=== PATIENT | male | born 1950 | race Two or more races ===

== ENCOUNTER 2018-09-05 11:40 | Emergency (ER) | payer MEDICARE, OTHER ==
[2018-09-05 12:25] VITALS: TEMP 97.6; BMI 34.9
--- NOTE | 2018-09-05 12:45 | PDOC ---
History of Present Illness - General Chief Complaint: Revisit, Lab Variance Stated Complaint: DIALYSIS PROBLEM Time Seen by Provider: 09/05/18 12:39 - History of Present Illness Initial Comments: 09/05/18 12:55 The patient is a 68 year old male with a history of HTN who presents for evaluation due to abnormal labs. The patient reports that he had blood work performed over a week ago by one of his physicians and 1 week ago was told that his blood work was abnormal and he should go to the ED. He states that he has not had time to go to the ED until today. He does not know what was abnormal in his blood work and is asymptomatic. He otherwise denies fevers, chills, SOB , chest pain, nausea, vomiting, abdominal pain, or changes with urination or bowel movements. Past History - Past Medical History Allergies/Adverse Reactions: Allergies Allergy/AdvReac Type Severity Reaction Status Date / Time No Known Allergies Allergy Verified 09/05/18 12:16 Home Medications: Ambulatory Orders Acetaminophen [Tylenol] 500 mg PO QID PRN 11/15/15 Aspirin [[place] Aspirin] 81 mg PO DAILY 11/15/15 Finasteride [Propecia] 5 mg PO DAILY 11/15/15 Lisinopril [Prinivil -] 20 mg PO DAILY 11/15/15 Multivitamin [Poly-Vitamin] 1 each PO DAILY 11/15/15 Nifedipine [Procardia Xl] 30 mg PO DAILY 11/15/15 Tamsulosin HCl [Flomax] 0.4 mg PO DAILY 11/15/15 COPD: No HTN: Yes - Suicide/Smoking/Psychosocial Hx Smoking History: Never smoked Hx Alcohol Use: No Drug/Substance Use Hx: No Substance Use Type: None Review of Systems - Review of Systems Comments:: 09/05/18 13:09 Constitutional: No fevers, chills, fatigue, malaise HEENT: No Rhinorrhea, nasal congestion, visual changes Cardiovascular: No chest pain, syncope, palpitations, lightheadedness Respiratory: No Cough, SOB, Hemoptysis, Gastrointestinal: No Abdominal pain, Nausea, Vomiting, Constipation, Diarrhea, Melena Genitourinary: No Dysuria, Frequency, Urgency, Hesitancy, Hematuria, Flank pain Musculoskeletal: No Myalgia, arthralgia Skin: No rashes, itching, bruising, pallor Neurologic: No Headache, Dizziness, Numbness, Weakness, or Tingling Psychiatric: No Hallucinations. No SI or HI *Physical Exam - Vital Signs Last Vital Signs Temp Pulse Resp BP Pulse Ox 97.6 F 87 16 141/80 99 09/05/18 12:16 09/05/18 12:16 09/05/18 12:16 09/05/18 12:16 09/05/18 12:16 - Physical Exam Comments: 09/05/18 13:09 General Appearance: Nourished. No Apparent Distress HEENT: No Pharyngeal Erythema, Tonsillar Exudate, Tonsillar Erythema Neck: No Cervical Lymphadenopathy Respiratory/Chest: Lungs Clear, Normal Breath Sounds. No Crackles, Rales, Rhonchi, Wheezing Cardiovascular: Regular Rhythm, Regular Rate. No Murmur, Gallops, Rubs Gastrointestinal/Abdominal: Normal Bowel Sounds, Soft. No Guarding, Rebound, Tenderness Musculoskeletal: No CVA Tenderness Extremity: Normal Capillary Refill Integumentary: Normal Color, Dry, Warm Neurologic: Fully Oriented, Alert, Normal Mood/Affect, Normal Response, ED Treatment Course - LABORATORY CBC & Chemistry Diagram: 09/05/18 13:15 09/05/18 13:15 Medical Decision Making - Medical Decision Making 09/05/18 13:10 The patient is a 68 year old male with a history of HTN who presents for evaluation due to abnormal labs. The patient appears clinically well on exam. Given the patient's history and physical exam, we will obtain a cbc, cmp, ekg to evaluate further. We will continue to monitor and reassess while here in the ED. 09/05/18 23:39 CBC are unremarkable. CMP demonstrates an elevated creatinine to 1.9 which is the patient's baseline. The patient continues to remain asymptomatic here in the ED. We are comfortable discharging the patient home with primary care provider follow up. We discussed the results, plan, and return precautions with the patient who voiced understanding and is agreeable with the plan. *DC/Admit/Observation/Transfer Diagnosis at time of Disposition: CKD (chronic kidney disease) Qualifiers: Chronic kidney disease stage: unspecified stage Qualified Code(s): N18.9 - Chronic kidney disease, unspecified - Discharge Dispostion Disposition: HOME Condition at time of disposition: Stable Decision to Admit order: No - Referrals - Patient Instructions Printed Discharge Instructions: Chronic Renal Failure Additional Instructions: Please return to the ER if you experience concerning or worsening symptoms including worsening difficulty breathing, weakness, or chest pain. Your lab results show that you have chronic kidney disease here in the ER. Please call to schedule a follow up appointment with your primary care provider within 2-3 days to discuss your ER visit and further management of your symptoms. Por favor, regrese a la antonia de emergencias si experimenta problemas o empeoramiento de los sntomas incluyendo empeoramiento de la dificultad respiratoria, debilidad o dolor en el pecho. Los resultados de tu laboratorio muestran que tienes garett enfermedad renal crnica aqu en [facility]. Por favor llame para programar garett belkis de seguimiento con garnica proveedor de cuidado primario dentro de los 2-3 philip para discutir garnica visita de [facility] y la administracin de jonathon sntomas. Print Language: KAZAKH - Post Discharge Activity
[2018-09-05 13:29] LABS: BASO % 1.1 % (0-2.0); EOS % 2.9 % (0-4.5); HEMATOCRIT 35.9 % (35.4-49); HEMOGLOBIN 11.8 GM/dL (11.7-16.9); LYMPH % 27.7 % (8-40); MCH 30.1 pg (25.7-33.7); MEAN CELL VOLUME 91.2 fl (80-96); MEAN PLT VOLUME 10.2 fl (7.5-11.1); MONO % 7.4 % (3.8-10.2); NEUT % 60.9 % (42.8-82.8); PLATELET COUNT 193 K/MM3 (134-434); RBC 3.94 M/mm3 (4.00-5.60); RDW 13.5 % (11.9-15.9); WHITE BLOOD COUNT 7.3 K/mm3 (4.0-10.0)
[2018-09-05 14:02] LABS: ALBUMIN 3.7 g/dl (3.4-5.0); ALK PHOS 101 U/L (45-117); ANION GAP 8 MMOL/L (8-16); BILIRUBIN,TOTAL 0.6 mg/dL (0.2-1); BLOOD UREA NITROGEN 32 mg/dL (7-18); CALCIUM 9.3 mg/dL (8.5-10.1); CHLORIDE 106 mmol/L (98-107); CO2 25 mmol/L (21-32); CREATININE 1.9 mg/dL (0.55-1.3); GLUCOSE,RANDOM 96 mg/dL (74-106); POTASSIUM 3.7 mmol/L (3.5-5.1); SGOT/AST 24 U/L (15-37); SGPT/ALT 24 U/L (13-61); SODIUM 139 mmol/L (136-145); TOT PROT 7.6 g/dl (6.4-8.2)
--- NOTE | 2018-09-05 14:05 | PDOC ---
Attending Attestation - Resident Resident Name: Bret Wallsel - ED Attending Attestation I have performed the following: I have examined & evaluated the patient, The case was reviewed & discussed with the resident, I agree w/resident's findings & plan - HPI HPI: 09/05/18 14:04 Brian is a 68-year-old male, with a past medical history of HTN, who presents to the ED with abnormal lab findings. The patient states that he had blood drawn last week at his doctors office at [facility]. He was called and told to report to the ED but he is unsure why. He reports that he was unable to go to the ER until today. On exam, the patient is asymptomatic. - Physicial Exam PE: 09/05/18 14:04 NAD, well appearing, PERRL, EOMI, MMM, nl conjunctiva, anicteric; neck supple. lungs clear, RRR, abdomen soft nontender. JEAN x4, no focal neuro deficits. No peripheral edema. normal color for ethnicity, WWP. - Medical Decision Making 09/05/18 14:04 68 YOM with no symptoms, here with abnormal labs? Vital signs reviewed, wnl. Prior notes reviewed, including admissions, discharges and consultations. laboratory results and imaging reviewed, basic labs and lytes wnl, notable for baseline Cr ~1.9, unchanged. no other e/o organ damage Cardiac panel_neg trop EKG normal sinus rhythm, no interval abnormalities, narrow QRS, ST and T wave segments and morphology normal. Nonspecific T wave abnormalities ED course: no acute events, asymptomatic. Dispo: I discussed the physical exam findings, ancillary test results and final diagnoses with the patient. I answered all of the patient's questions. The patient was satisfied with the care received and felt comfortable with the discharge plan and treatment plan. The patient will return to the Emergency Department with any new, persistent or worsening symptoms. 09/05/18 14:58 09/05/18 16:17 Heart Score/ECG Review - ECG Impressions Normal ECG: Yes Comment:: 09/05/18 14:57 EKG normal sinus rhythm, no interval abnormalities, narrow QRS, ST and T wave segments and morphology normal. Nonspecific T wave abnormalities
--- NOTE | 2018-09-05 15:19 | EKG ---
Test Reason : Blood Pressure : / mmHG Vent. Rate : 073 BPM Atrial Rate : 073 BPM P-R Int : 196 ms QRS Dur : 098 ms QT Int : 428 ms P-R-T Axes : 053 -22 026 degrees QTc Int : 471 ms POOR DATA QUALITY, INTERPRETATION MAY BE ADVERSELY AFFECTED NORMAL SINUS RHYTHM MINIMAL VOLTAGE CRITERIA FOR LVH, MAY BE NORMAL VARIANT BORDERLINE ECG NO PREVIOUS ECGS AVAILABLE Confirmed by Gage Mi MD ([id number]) on 09/05/2018 3:19:41 PM Referred By: Confirmed By:Gage Mi MD
[2018-09-05 16:52] VITALS: BP 133/80; PULSE 84
== END 2018-09-05 16:53 | disposition home or self-care (01) ==
LOC: JER 11:40
DX: I12.9 Hypertensive chronic kidney disease with stage 1 through stage 4 chronic kidney disease, or unspecified chronic kidney disease (principal)
CPT/HCPCS: 36415; 80053; 85025; 93005; 93010; 99283-25

== ENCOUNTER 2021-11-09 13:38 | Inpatient (IN) | payer MEDICARE, OTHER ==
[2021-11-09] MEDS ORDERED: ALBUTEROL SO4 2.5/IPRATROPIUM 0.5 INH SOL 3 ML VIAL.NEB. NEB ONE ×3 (13:41→17:34)
[2021-11-09 14:31] LABS: VENOUS BASE EXCESS 0.8 mmol/L (-2-2); VENOUS O2 SATURATION 63.6 % (70-80); VENOUS PH 7.364 (7.310-7.410)
[2021-11-09 14:34] LABS: BASO % 0.8 % (0-2.0); EOS % 3.1 % (0-4.5); HEMATOCRIT 35.1 % (35.4-49); HEMOGLOBIN 11.6 GM/dL (11.7-16.9); LYMPH % 12.8 % (8-40); MCH 29.6 pg (25.7-33.7); MEAN CELL VOLUME 89.6 fl (80-96); MEAN PLT VOLUME 10.1 fl (7.5-11.1); MONO % 9.2 % (3.8-10.2); NEUT % 74.1 % (42.8-82.8); PLATELET COUNT 134 10^3/uL (134-434); RBC 3.92 M/mm3 (4.00-5.60); RDW 14.7 % (11.9-15.9); WHITE BLOOD COUNT 5.7 K/mm3 (4.0-10.0)
[2021-11-09] MEDS ORDERED: DEXAMETHASONE SOD PHOSPHATE 10 MG/1 ML VIAL IVPUSH ONE (14:40)
[2021-11-09] MEDS ORDERED: DEXAMETHASONE SOD PHOSPHATE 10 MG/1 ML VIAL ONE (14:44)
[2021-11-09 15:01] LABS: CALCIUM 8.6 mg/dL (8.5-10.1)
[2021-11-09 15:02] LABS: MAGNESIUM 2.9 mg/dL (1.8-2.4)
[2021-11-09 15:03] LABS: ALBUMIN 3.3 g/dl (3.4-5.0)
[2021-11-09 15:05] LABS: CREATININE 2.2 mg/dL (0.55-1.3)
[2021-11-09 15:07] LABS: BILIRUBIN,TOTAL 0.5 mg/dL (0.2-1); TOT PROT 6.8 g/dl (6.4-8.2)
[2021-11-09 15:10] LABS: N-TERMINAL BNP 32176.8 pg/ml (5-125)
[2021-11-09] MEDS ORDERED: FUROSEMIDE 40 MG/4 ML INJECTABLE VIAL IVPUSH ONE ×2 (15:25→18:52)
[2021-11-09] MEDS ORDERED: FUROSEMIDE 40 MG/4 ML INJECTABLE VIAL ONE ×2 (15:29→19:34)
[2021-11-09] MEDS ORDERED: ALBUTEROL SO4 0.083% IH SOL 2.5 MG/3 ML VIAL.NEB. NEB ONE (17:30)
[2021-11-09] MEDS ORDERED: MAGNESIUM SULF 50% (8.12 MEQ/2 ML-1 GM VIAL) IVPB ONE (17:33)
[2021-11-09] MEDS ORDERED: ALBUTEROL SO4 HFA INHALER IH PRN (18:21)
[2021-11-09] MEDS ORDERED: MAGNESIUM 1GM/D5W - 1 GM/100 ML IVPB IVPB ONE (18:25)
[2021-11-09] MEDS ORDERED: ASPIRIN COATED 81 MG TABLET.EC ONE (18:26)
[2021-11-09] MEDS: ASPIRIN COATED 81 MG TABLET.EC PO SCH (18:37)
[2021-11-09 19:53] LABS: EPI CELLS 4 /uL (0-25.1); HYALINE CASTS 2 /uL (0-3.1); PH,URINE 6.5 (5.0-8.0); URINE APPEARANCE CLEAR; URINE BACTERIA 11 /uL (0-1359); URINE BILIRUBIN NEGATIVE (NEGATIVE); URINE COLOR YELLOW; URINE GLUCOSE (UA) NEGATIVE (NEGATIVE); URINE KETONE NEGATIVE (NEGATIVE); URINE LEUK ESTERASE TRACE (NEGATIVE); URINE NITRITE NEGATIVE (NEGATIVE); URINE PROTEIN 2+ (NEGATIVE); URINE RBC 29 /uL (0-23.9); URINE UROBILINOGEN 0.2 mg/dL (0.2-1.0); URINE WBC 11 /uL (0-25.8)
[2021-11-09] MEDS ORDERED: HEPARIN NA (PORCINE) 5,000 UNITS/ML 1ML VIAL ONE (23:37)
[2021-11-09] MEDS: HEPARIN NA (PORCINE) 5,000 UNITS/ML 1ML VIAL SQ SCH (23:48)
[2021-11-10] MEDS ORDERED: HEPARIN NA (PORCINE) 5,000 UNITS/ML 1ML VIAL ONE ×3 (06:22→22:18)
[2021-11-10] MEDS: HEPARIN NA (PORCINE) 5,000 UNITS/ML 1ML VIAL SQ SCH ×3 (06:35→22:18)
[2021-11-10] MEDS ORDERED: ASPIRIN COATED 81 MG TABLET.EC ONE (08:21)
[2021-11-10] MEDS ORDERED: TAMSULOSIN HCL 0.4 MG CAP ONE (08:21)
[2021-11-10] MEDS ORDERED: FUROSEMIDE 40 MG/4 ML INJECTABLE VIAL ONE ×2 (08:21→14:48)
[2021-11-10 09:03] LABS: CALCIUM 9.2 mg/dL (8.5-10.1); CREATININE 2.4 mg/dL (0.55-1.3)
[2021-11-10 09:04] LABS: ALBUMIN 3.4 g/dl (3.4-5.0)
[2021-11-10 09:05] LABS: BLOOD UREA NITROGEN 52.2 mg/dL (7-18); TOT PROT 7.2 g/dl (6.4-8.2)
[2021-11-10 09:08] LABS: PHOSPHOROUS 5.5 mg/dL (2.5-4.9)
[2021-11-10 09:10] LABS: BILIRUBIN,TOTAL 0.7 mg/dL (0.2-1)
[2021-11-10] MEDS: TAMSULOSIN HCL 0.4 MG CAP PO SCH (09:15)
[2021-11-10] MEDS: ASPIRIN COATED 81 MG TABLET.EC PO SCH (09:15)
[2021-11-10] MEDS ORDERED: FUROSEMIDE 40 MG/4 ML INJECTABLE VIAL IVPUSH SCH (10:00)
[2021-11-10] MEDS ORDERED: SODIUM CHLORIDE 500 ML IV STA (10:02)
[2021-11-10] MEDS ORDERED: predniSONE 20 MG TABLET (UD) PO SCH (10:15)
[2021-11-10] MEDS ORDERED: predniSONE 20 MG TABLET (UD) ONE (10:33)
[2021-11-10 11:06] LABS: BASO % 0.2 % (0-2.0); HEMATOCRIT 37.8 % (35.4-49); HEMOGLOBIN 11.7 GM/dL (11.7-16.9); LYMPH % 5.8 % (8-40); MCH 28.5 pg (25.7-33.7); MEAN CELL VOLUME 91.8 fl (80-96); MONO % 6.9 % (3.8-10.2); NEUT % 87.1 % (42.8-82.8); PLATELET COUNT 136 10^3/uL (134-434); RBC 4.12 M/mm3 (4.00-5.60); RDW 14.9 % (11.9-15.9); WHITE BLOOD COUNT 4.9 K/mm3 (4.0-10.0)
[2021-11-10] MEDS: FUROSEMIDE 40 MG/4 ML INJECTABLE VIAL IVPUSH SCH (14:30)
[2021-11-10] MEDS: ISOSORBIDE DINITRATE 10 MG TABLET PO SCH (18:53)
[2021-11-10] MEDS: hydrALAZINE HCL 10 MG TABLET PO SCH (18:53)
[2021-11-10] MEDS ORDERED: CARVEDILOL 3.125 MG TABLET (FP) PO SCH (23:45)
[2021-11-11 00:38] VITALS: BMI 37.3
[2021-11-11] MEDS: hydrALAZINE HCL 10 MG TABLET PO SCH ×3 (06:39→21:57)
[2021-11-11] MEDS: FUROSEMIDE 40 MG/4 ML INJECTABLE VIAL IVPUSH SCH ×2 (06:40→14:09)
[2021-11-11] MEDS: HEPARIN NA (PORCINE) 5,000 UNITS/ML 1ML VIAL SQ SCH ×3 (06:40→21:57)
[2021-11-11 07:16] LABS: BASO % 0.1 % (0-2.0); EOS % 0.1 % (0-4.5); HEMATOCRIT 35.4 % (35.4-49); HEMOGLOBIN 11.2 GM/dL (11.7-16.9); LYMPH % 7.4 % (8-40); MCH 28.8 pg (25.7-33.7); MCHC 31.6 g/dl (32.0-35.9); MEAN CELL VOLUME 91.3 fl (80-96); MEAN PLT VOLUME 11.2 fl (7.5-11.1); MONO % 9.7 % (3.8-10.2); NEUT % 82.7 % (42.8-82.8); PLATELET COUNT 134 10^3/uL (134-434); RBC 3.88 M/mm3 (4.00-5.60); RDW 14.6 % (11.9-15.9); WHITE BLOOD COUNT 6.8 K/mm3 (4.0-10.0)
[2021-11-11 07:29] LABS: CALCIUM 8.4 mg/dL (8.5-10.1)
[2021-11-11 07:30] LABS: ALBUMIN 3.4 g/dl (3.4-5.0); BLOOD UREA NITROGEN 66.8 mg/dL (7-18)
[2021-11-11 07:33] LABS: CREATININE 2.8 mg/dL (0.55-1.3); PHOSPHOROUS 5.9 mg/dL (2.5-4.9)
[2021-11-11 07:34] LABS: BILIRUBIN,TOTAL 0.8 mg/dL (0.2-1)
[2021-11-11] MEDS: TAMSULOSIN HCL 0.4 MG CAP PO SCH (09:16)
[2021-11-11] MEDS: ISOSORBIDE DINITRATE 10 MG TABLET PO SCH ×3 (09:16→17:37)
[2021-11-11] MEDS: FINASTERIDE 5 MG TABLET (FP) PO SCH (09:16)
[2021-11-11] MEDS: ASPIRIN COATED 81 MG TABLET.EC PO SCH (09:16)
[2021-11-11] MEDS ORDERED: LEVALBUTEROL HCL 0.31 MG/3 ML VIAL.NEB IH PRN (10:53)
[2021-11-11] MEDS: FLUTICASONE/SALMETEROL 100 MCG/50 MCG DISKUS IH SCH ×2 (12:27→22:01)
[2021-11-12] MEDS: hydrALAZINE HCL 10 MG TABLET PO SCH ×3 (05:54→21:11)
[2021-11-12] MEDS: HEPARIN NA (PORCINE) 5,000 UNITS/ML 1ML VIAL SQ SCH ×3 (05:54→21:11)
[2021-11-12] MEDS: FUROSEMIDE 40 MG/4 ML INJECTABLE VIAL IVPUSH SCH ×2 (05:54→13:54)
[2021-11-12 07:41] LABS: BASO % 0.6 % (0-2.0); EOS % 5.2 % (0-4.5); HEMATOCRIT 33.7 % (35.4-49); LYMPH % 14.4 % (8-40); MCH 29.4 pg (25.7-33.7); MCHC 32.7 g/dl (32.0-35.9); MEAN CELL VOLUME 89.8 fl (80-96); MEAN PLT VOLUME 10.8 fl (7.5-11.1); NEUT % 70.8 % (42.8-82.8); PLATELET COUNT 120 10^3/uL (134-434); RBC 3.75 M/mm3 (4.00-5.60); RDW 14.9 % (11.9-15.9); WHITE BLOOD COUNT 5.9 K/mm3 (4.0-10.0)
[2021-11-12] MEDS: ALBUTEROL SO4 HFA INHALER IH PRN (09:58)
[2021-11-12] MEDS: ASPIRIN COATED 81 MG TABLET.EC PO SCH (09:59)
[2021-11-12] MEDS: TAMSULOSIN HCL 0.4 MG CAP PO SCH (09:59)
[2021-11-12] MEDS: ISOSORBIDE DINITRATE 10 MG TABLET PO SCH ×3 (09:59→17:28)
[2021-11-12] MEDS: FINASTERIDE 5 MG TABLET (FP) PO SCH (09:59)
[2021-11-12] MEDS: FLUTICASONE/SALMETEROL 100 MCG/50 MCG DISKUS IH SCH ×2 (10:00→21:11)
[2021-11-12] MEDS ORDERED: METOPROLOL TARTRATE 5 MG/5 ML VIAL IVPUSH ONE (11:41)
[2021-11-13] MEDS: hydrALAZINE HCL 10 MG TABLET PO SCH (05:13)
[2021-11-13] MEDS: HEPARIN NA (PORCINE) 5,000 UNITS/ML 1ML VIAL SQ SCH ×3 (05:13→21:08)
[2021-11-13] MEDS: FUROSEMIDE 40 MG/4 ML INJECTABLE VIAL IVPUSH SCH ×2 (05:13→13:13)
[2021-11-13 06:41] LABS: BASO % 0.9 % (0-2.0); EOS % 4.8 % (0-4.5); HEMATOCRIT 34.7 % (35.4-49); MCH 28.7 pg (25.7-33.7); MCHC 31.6 g/dl (32.0-35.9); MEAN CELL VOLUME 90.9 fl (80-96); MEAN PLT VOLUME 10.4 fl (7.5-11.1); MONO % 8.6 % (3.8-10.2); NEUT % 73.7 % (42.8-82.8); PLATELET COUNT 128 10^3/uL (134-434); RBC 3.82 M/mm3 (4.00-5.60); RDW 14.6 % (11.9-15.9); WHITE BLOOD COUNT 5.5 K/mm3 (4.0-10.0)
[2021-11-13 07:07] LABS: ALBUMIN 3.1 g/dl (3.4-5.0); BLOOD UREA NITROGEN 72.6 mg/dL (7-18); CALCIUM 8.3 mg/dL (8.5-10.1); MAGNESIUM 2.5 mg/dL (1.8-2.4)
[2021-11-13 07:10] LABS: CREATININE 2.5 mg/dL (0.55-1.3); PHOSPHOROUS 5.2 mg/dL (2.5-4.9)
[2021-11-13 07:11] LABS: BILIRUBIN,TOTAL 0.6 mg/dL (0.2-1); TOT PROT 6.4 g/dl (6.4-8.2)
[2021-11-13] MEDS: ASPIRIN COATED 81 MG TABLET.EC PO SCH (09:14)
[2021-11-13] MEDS: ISOSORBIDE DINITRATE 10 MG TABLET PO SCH ×3 (09:14→17:31)
[2021-11-13] MEDS: TAMSULOSIN HCL 0.4 MG CAP PO SCH (09:14)
[2021-11-13] MEDS: FINASTERIDE 5 MG TABLET (FP) PO SCH (09:14)
[2021-11-13] MEDS: metoPROLOL SUCCINATE 25 MG TAB.SR.24H (FP) PO SCH (09:14)
[2021-11-13] MEDS: FLUTICASONE/SALMETEROL 100 MCG/50 MCG DISKUS IH SCH ×2 (09:16→21:08)
[2021-11-13] MEDS: ALBUTEROL SO4 HFA INHALER IH PRN (09:17)
[2021-11-13] MEDS ORDERED: POTASSIUM CHLORIDE TABS 20 MEQ TABLET.ER (FP) PO ONE (12:15)
[2021-11-13] MEDS: hydrALAZINE HCL 25 MG TABLET (FP) PO SCH ×2 (13:13→21:08)
[2021-11-13 19:19] LABS: ALBUMIN 3.2 g/dl (3.4-5.0); BILIRUBIN,TOTAL 0.6 mg/dL (0.2-1); CALCIUM 8.7 mg/dL (8.5-10.1); CREATININE 2.8 mg/dL (0.55-1.3); PHOSPHOROUS 5.5 mg/dL (2.5-4.9); TOT PROT 6.4 g/dl (6.4-8.2)
[2021-11-13 22:45] LABS: BLOOD UREA NITROGEN 74.3 mg/dL (7-18); CALCIUM 8.2 mg/dL (8.5-10.1)
[2021-11-13 22:49] LABS: CREATININE 2.7 mg/dL (0.55-1.3)
[2021-11-14] MEDS: HEPARIN NA (PORCINE) 5,000 UNITS/ML 1ML VIAL SQ SCH ×3 (05:21→21:07)
[2021-11-14] MEDS: hydrALAZINE HCL 25 MG TABLET (FP) PO SCH ×3 (05:21→21:07)
[2021-11-14] MEDS: FUROSEMIDE 40 MG/4 ML INJECTABLE VIAL IVPUSH SCH ×2 (05:21→13:21)
[2021-11-14 08:51] LABS: BASO % 0.8 % (0-2.0); EOS % 4.6 % (0-4.5); HEMATOCRIT 34.9 % (35.4-49); HEMOGLOBIN 11.5 GM/dL (11.7-16.9); LYMPH % 17.1 % (8-40); MCH 29.2 pg (25.7-33.7); MCHC 32.9 g/dl (32.0-35.9); MEAN PLT VOLUME 10.6 fl (7.5-11.1); MONO % 9.8 % (3.8-10.2); NEUT % 67.7 % (42.8-82.8); PLATELET COUNT 132 10^3/uL (134-434); RBC 3.93 M/mm3 (4.00-5.60); RDW 14.5 % (11.9-15.9); WHITE BLOOD COUNT 5.2 K/mm3 (4.0-10.0)
[2021-11-14 09:17] LABS: CALCIUM 8.8 mg/dL (8.5-10.1)
[2021-11-14 09:18] LABS: MAGNESIUM 2.3 mg/dL (1.8-2.4)
[2021-11-14 09:19] LABS: ALBUMIN 3.2 g/dl (3.4-5.0)
[2021-11-14 09:21] LABS: PHOSPHOROUS 3.9 mg/dL (2.5-4.9)
[2021-11-14 09:22] LABS: CREATININE 2.4 mg/dL (0.55-1.3); TOT PROT 6.4 g/dl (6.4-8.2)
[2021-11-14 09:24] LABS: BILIRUBIN,TOTAL 0.6 mg/dL (0.2-1)
[2021-11-14] MEDS: ISOSORBIDE DINITRATE 10 MG TABLET PO SCH ×3 (10:31→18:27)
[2021-11-14] MEDS: ASPIRIN COATED 81 MG TABLET.EC PO SCH (10:32)
[2021-11-14] MEDS: FINASTERIDE 5 MG TABLET (FP) PO SCH (10:32)
[2021-11-14] MEDS: TAMSULOSIN HCL 0.4 MG CAP PO SCH (10:34)
[2021-11-14] MEDS: FLUTICASONE/SALMETEROL 100 MCG/50 MCG DISKUS IH SCH ×2 (10:34→21:07)
[2021-11-14] MEDS: metoPROLOL SUCCINATE 25 MG TAB.SR.24H (FP) PO SCH (10:34)
[2021-11-14] MEDS: hydrALAZINE HCL 10 MG TABLET PO SCH (10:37)
[2021-11-14] MEDS: POTASSIUM CHLORIDE TABS 20 MEQ TABLET.ER (FP) PO SCH ×2 (13:21→21:07)
[2021-11-15] MEDS: HEPARIN NA (PORCINE) 5,000 UNITS/ML 1ML VIAL SQ SCH ×3 (05:26→21:06)
[2021-11-15] MEDS: hydrALAZINE HCL 25 MG TABLET (FP) PO SCH ×3 (05:26→21:06)
[2021-11-15] MEDS: FUROSEMIDE 40 MG/4 ML INJECTABLE VIAL IVPUSH SCH ×2 (05:26→13:37)
[2021-11-15 08:20] LABS: BASO % 0.7 % (0-2.0); HEMATOCRIT 35.7 % (35.4-49); HEMOGLOBIN 11.4 GM/dL (11.7-16.9); LYMPH % 17.2 % (8-40); MCH 28.6 pg (25.7-33.7); MCHC 31.9 g/dl (32.0-35.9); MEAN CELL VOLUME 89.6 fl (80-96); MEAN PLT VOLUME 10.8 fl (7.5-11.1); MONO % 9.7 % (3.8-10.2); NEUT % 68.4 % (42.8-82.8); PLATELET COUNT 147 10^3/uL (134-434); RBC 3.99 M/mm3 (4.00-5.60); RDW 14.7 % (11.9-15.9); WHITE BLOOD COUNT 5.6 K/mm3 (4.0-10.0)
[2021-11-15 08:38] LABS: CALCIUM 8.9 mg/dL (8.5-10.1)
[2021-11-15 08:39] LABS: BLOOD UREA NITROGEN 68.8 mg/dL (7-18)
[2021-11-15 08:41] LABS: PHOSPHOROUS 3.6 mg/dL (2.5-4.9)
[2021-11-15 08:42] LABS: CREATININE 2.3 mg/dL (0.55-1.3)
[2021-11-15 08:43] LABS: BILIRUBIN,TOTAL 0.8 mg/dL (0.2-1); TOT PROT 6.1 g/dl (6.4-8.2)
[2021-11-15] MEDS: TAMSULOSIN HCL 0.4 MG CAP PO SCH (10:11)
[2021-11-15] MEDS: ISOSORBIDE DINITRATE 10 MG TABLET PO SCH ×3 (10:11→17:45)
[2021-11-15] MEDS: POTASSIUM CHLORIDE TABS 20 MEQ TABLET.ER (FP) PO SCH ×2 (10:11→21:06)
[2021-11-15] MEDS: FINASTERIDE 5 MG TABLET (FP) PO SCH (10:11)
[2021-11-15] MEDS: ASPIRIN COATED 81 MG TABLET.EC PO SCH (10:11)
[2021-11-15] MEDS: metoPROLOL SUCCINATE 25 MG TAB.SR.24H (FP) PO SCH (10:11)
[2021-11-15] MEDS: FLUTICASONE/SALMETEROL 100 MCG/50 MCG DISKUS IH SCH ×2 (10:14→21:06)
[2021-11-16] MEDS: hydrALAZINE HCL 25 MG TABLET (FP) PO SCH ×3 (05:22→21:11)
[2021-11-16] MEDS: FUROSEMIDE 40 MG/4 ML INJECTABLE VIAL IVPUSH SCH ×2 (05:22→15:11)
[2021-11-16] MEDS: HEPARIN NA (PORCINE) 5,000 UNITS/ML 1ML VIAL SQ SCH ×3 (05:22→21:11)
[2021-11-16 07:27] LABS: BASO % 0.9 % (0-2.0); EOS % 3.7 % (0-4.5); HEMATOCRIT 35.1 % (35.4-49); HEMOGLOBIN 11.4 GM/dL (11.7-16.9); MCH 28.8 pg (25.7-33.7); MCHC 32.4 g/dl (32.0-35.9); MEAN PLT VOLUME 10.5 fl (7.5-11.1); MONO % 12.4 % (3.8-10.2); PLATELET COUNT 142 10^3/uL (134-434); RBC 3.94 M/mm3 (4.00-5.60); RDW 14.5 % (11.9-15.9); WHITE BLOOD COUNT 6.8 K/mm3 (4.0-10.0)
[2021-11-16 07:35] LABS: BLOOD UREA NITROGEN 65.6 mg/dL (7-18); CALCIUM 8.5 mg/dL (8.5-10.1); MAGNESIUM 1.8 mg/dL (1.8-2.4)
[2021-11-16 07:38] LABS: PHOSPHOROUS 3.2 mg/dL (2.5-4.9)
[2021-11-16 07:40] LABS: BILIRUBIN,TOTAL 0.7 mg/dL (0.2-1); TOT PROT 6.2 g/dl (6.4-8.2)
[2021-11-16] MEDS: FINASTERIDE 5 MG TABLET (FP) PO SCH (09:41)
[2021-11-16] MEDS: POTASSIUM CHLORIDE TABS 20 MEQ TABLET.ER (FP) PO SCH (09:41)
[2021-11-16] MEDS: ISOSORBIDE DINITRATE 10 MG TABLET PO SCH ×3 (09:41→18:20)
[2021-11-16] MEDS: TAMSULOSIN HCL 0.4 MG CAP PO SCH (09:41)
[2021-11-16] MEDS: ASPIRIN COATED 81 MG TABLET.EC PO SCH (09:41)
[2021-11-16] MEDS: FLUTICASONE/SALMETEROL 100 MCG/50 MCG DISKUS IH SCH ×2 (09:41→21:13)
[2021-11-16] MEDS: metoPROLOL SUCCINATE 25 MG TAB.SR.24H (FP) PO SCH (09:41)
[2021-11-16] MEDS ORDERED: ACETAMINOPHEN 1000 MG/100 ML BAG IVPB ONE ×2 (10:55→16:45)
[2021-11-16] MEDS: SPIRONOLACTONE 25 MG TABLET PO SCH (20:16)
[2021-11-16] MEDS: CARVEDILOL 12.5 MG TABLET (FP) PO SCH (21:11)
[2021-11-16] MEDS: SACUBITRIL/VALSARTAN 24 MG-26 MG TABLET PO SCH (22:17)
[2021-11-17] MEDS: HEPARIN NA (PORCINE) 5,000 UNITS/ML 1ML VIAL SQ SCH ×3 (05:57→22:10)
[2021-11-17] MEDS: hydrALAZINE HCL 25 MG TABLET (FP) PO SCH ×3 (05:57→22:11)
[2021-11-17] MEDS: FUROSEMIDE 40 MG/4 ML INJECTABLE VIAL IVPUSH SCH ×3 (05:57→22:10)
[2021-11-17 07:27] LABS: BASO % 1.1 % (0-2.0); EOS % 3.7 % (0-4.5); HEMATOCRIT 35.4 % (35.4-49); HEMOGLOBIN 11.2 GM/dL (11.7-16.9); LYMPH % 17.4 % (8-40); MCH 28.4 pg (25.7-33.7); MCHC 31.5 g/dl (32.0-35.9); MONO % 11.1 % (3.8-10.2); NEUT % 66.7 % (42.8-82.8); PLATELET COUNT 154 10^3/uL (134-434); RBC 3.94 M/mm3 (4.00-5.60); RDW 14.9 % (11.9-15.9); WHITE BLOOD COUNT 5.6 K/mm3 (4.0-10.0)
[2021-11-17 07:46] LABS: BLOOD UREA NITROGEN 65.6 mg/dL (7-18); CALCIUM 8.6 mg/dL (8.5-10.1); MAGNESIUM 1.9 mg/dL (1.8-2.4)
[2021-11-17 07:47] LABS: ALBUMIN 2.8 g/dl (3.4-5.0)
[2021-11-17 07:49] LABS: CREATININE 1.9 mg/dL (0.55-1.3); PHOSPHOROUS 3.3 mg/dL (2.5-4.9)
[2021-11-17 07:51] LABS: BILIRUBIN,TOTAL 0.7 mg/dL (0.2-1); TOT PROT 6.2 g/dl (6.4-8.2)
[2021-11-17] MEDS: SPIRONOLACTONE 25 MG TABLET PO SCH (11:08)
[2021-11-17] MEDS: ASPIRIN COATED 81 MG TABLET.EC PO SCH (11:08)
[2021-11-17] MEDS: FINASTERIDE 5 MG TABLET (FP) PO SCH (11:08)
[2021-11-17] MEDS: ISOSORBIDE DINITRATE 10 MG TABLET PO SCH ×3 (11:08→17:58)
[2021-11-17] MEDS: CARVEDILOL 12.5 MG TABLET (FP) PO SCH ×2 (11:08→22:10)
[2021-11-17] MEDS: SACUBITRIL/VALSARTAN 24 MG-26 MG TABLET PO SCH ×2 (11:08→22:11)
[2021-11-17] MEDS: TAMSULOSIN HCL 0.4 MG CAP PO SCH (11:08)
[2021-11-17] MEDS: FLUTICASONE/SALMETEROL 100 MCG/50 MCG DISKUS IH SCH ×2 (11:08→22:11)
[2021-11-17] MEDS ORDERED: SODIUM CHLORIDE 1,000 ML IV SCH (13:30)
[2021-11-17] MEDS ORDERED: POTASSIUM CHLORIDE TABS 20 MEQ TABLET.ER (FP) PO ONE (15:40)
[2021-11-17] MEDS ORDERED: MAGNESIUM SULF 50% (8.12 MEQ/2 ML-1 GM VIAL) IVPB ONE (15:45)
[2021-11-18] MEDS: hydrALAZINE HCL 25 MG TABLET (FP) PO SCH ×2 (06:18→13:54)
[2021-11-18] MEDS: HEPARIN NA (PORCINE) 5,000 UNITS/ML 1ML VIAL SQ SCH ×2 (06:18→13:54)
[2021-11-18 07:40] LABS: BASO % 0.9 % (0-2.0); EOS % 3.3 % (0-4.5); HEMATOCRIT 36.3 % (35.4-49); HEMOGLOBIN 11.6 GM/dL (11.7-16.9); LYMPH % 11.3 % (8-40); MCH 28.6 pg (25.7-33.7); MCHC 31.9 g/dl (32.0-35.9); MEAN CELL VOLUME 89.6 fl (80-96); MEAN PLT VOLUME 10.6 fl (7.5-11.1); MONO % 11.5 % (3.8-10.2); PLATELET COUNT 155 10^3/uL (134-434); RBC 4.05 M/mm3 (4.00-5.60); RDW 14.9 % (11.9-15.9); WHITE BLOOD COUNT 6.1 K/mm3 (4.0-10.0)
[2021-11-18 07:59] LABS: ALBUMIN 2.9 g/dl (3.4-5.0); BLOOD UREA NITROGEN 66.3 mg/dL (7-18)
[2021-11-18 08:01] LABS: CALCIUM 8.6 mg/dL (8.5-10.1)
[2021-11-18 08:02] LABS: CREATININE 1.9 mg/dL (0.55-1.3)
[2021-11-18 08:03] LABS: BILIRUBIN,TOTAL 1.1 mg/dL (0.2-1)
[2021-11-18 08:04] LABS: TOT PROT 6.2 g/dl (6.4-8.2)
[2021-11-18] MEDS: TAMSULOSIN HCL 0.4 MG CAP PO SCH (08:46)
[2021-11-18] MEDS: ISOSORBIDE DINITRATE 10 MG TABLET PO SCH ×2 (08:46→13:53)
[2021-11-18] MEDS: FUROSEMIDE 40 MG/4 ML INJECTABLE VIAL IVPUSH SCH (10:32)
[2021-11-18] MEDS: FLUTICASONE/SALMETEROL 100 MCG/50 MCG DISKUS IH SCH (10:32)
[2021-11-18] MEDS: CARVEDILOL 12.5 MG TABLET (FP) PO SCH (10:32)
[2021-11-18] MEDS: SPIRONOLACTONE 25 MG TABLET PO SCH (10:32)
[2021-11-18] MEDS: FINASTERIDE 5 MG TABLET (FP) PO SCH (10:32)
[2021-11-18] MEDS: SACUBITRIL/VALSARTAN 24 MG-26 MG TABLET PO SCH (10:33)
[2021-11-18 14:47] VITALS: BP 111/59; PULSE 84; TEMP 98.3
[2021-11-18] MEDS ORDERED: METOPROLOL TARTRATE 5 MG/5 ML VIAL IVPUSH PRN (16:42)
== END 2021-11-18 17:23 | disposition short-term general hospital (02) | DRG 291 ==
LOC: JER 13:38 → JERBED 15:08 → J4W 11-10 22:54
PROVIDERS: ADMIT Internal Medicine; ATTEND Internal Medicine
DX: I13.0 Hypertensive heart and chronic kidney disease with heart failure and stage 1 through stage 4 chronic kidney disease, or unspecified chronic kidney disease (principal); I50.23 Acute on chronic systolic (congestive) heart failure; N17.9 Acute kidney failure, unspecified; J44.1 Chronic obstructive pulmonary disease with (acute) exacerbation; N18.32 Chronic kidney disease, stage 3b; J45.909 Unspecified asthma, uncomplicated; E66.9 Obesity, unspecified; D64.9 Anemia, unspecified; Z68.35 Body mass index [BMI] 35.0-35.9, adult; E78.5 Hyperlipidemia, unspecified; N40.0 Benign prostatic hyperplasia without lower urinary tract symptoms; E87.6 Hypokalemia; E87.70 Fluid overload, unspecified; E87.5 Hyperkalemia; R80.9 Proteinuria, unspecified; D69.6 Thrombocytopenia, unspecified
CPT/HCPCS: 36415; 71045-TC-FY; 71046-TC-FY; 76775-TC; 80048; 80053; 80061; 81003; 82550; 82570; 82607; 82728; 82746; 82803; 83010; 83036; 83540; 83550; 83615; 83735; 83880; 84100; 84156; 84484; 84540; 85025; 85045; 93005; 93010; 93306-TC; 97116-GP; 97162-GP; 99285-25; C9803; J0131; J1100; J1644; U0003; U0005

== ENCOUNTER 2022-05-11 14:34 | Emergency (ER) | payer MEDICARE, OTHER ==
[2022-05-11 14:47] VITALS: BP 101/69; PULSE 96; RESP 17; TEMP 97.9; BMI 28.1
[2022-05-11] MEDS ORDERED: DIPHTH,PERTUSS(ACELL),TET 0.5 ML DISP.SYRIN IM ONE ×2 (15:44→15:57)
== END 2022-05-11 17:59 | disposition home or self-care (01) ==
LOC: JERFT 14:34 → JER 14:34
PROC: 3E0234Z Introduction of Serum, Toxoid and Vaccine into Muscle, Percutaneous Approach (ICD-10-PCS; principal; 2022-05-11)
DX: S81.811A Laceration without foreign body, right lower leg, initial encounter (principal); W25.XXXA Contact with sharp glass, initial encounter
CPT/HCPCS: 73590-TC-LT-FY; 90471; 90715; 99284-25

== ENCOUNTER 2022-11-20 09:57 | Emergency (ER) | payer MEDICARE, OTHER ==
[2022-11-20 10:02] VITALS: BP 128/70; PULSE 87; RESP 18; TEMP 97.5; BMI 27.3
[2022-11-20 11:39] LABS: BASO % 1.2 % (0-2.0); EOS % 4.4 % (0-4.5); HEMATOCRIT 32.3 % (35.4-49); LYMPH % 22.1 % (8-40); MCH 34.1 pg (25.7-33.7); MCHC 34.2 g/dl (32.0-35.9); MEAN CELL VOLUME 99.8 fl (80-96); MONO % 9.7 % (3.8-10.2); NEUT % 62.6 % (42.8-82.8); PLATELET COUNT 136 10^3/uL (134-434); RBC 3.23 M/mm3 (4.00-5.60); RDW 14.1 % (11.9-15.9); WHITE BLOOD COUNT 5.5 K/mm3 (4.0-10.0)
[2022-11-20 11:52] LABS: CHLORIDE 106 mmol/L (98-107); SODIUM 140 mmol/L (136-145)
[2022-11-20 11:54] LABS: ALBUMIN 3.4 g/dl (3.4-5.0); ANION GAP 11 MMOL/L (8-16); CALCIUM 9.4 mg/dL (8.5-10.1); CO2 23 mmol/L (21-32); GLUCOSE,RANDOM 137 mg/dL (74-106); MAGNESIUM 2.2 mg/dL (1.8-2.4)
[2022-11-20 11:58] LABS: SGOT/AST 24 U/L (15-37); SGPT/ALT 25 U/L (13-61)
[2022-11-20 11:59] LABS: BILIRUBIN,TOTAL 0.5 mg/dL (0.2-1); TOT PROT 6.9 g/dl (6.4-8.2)
[2022-11-20 12:00] LABS: ALK PHOS 137 U/L (45-117)
== END 2022-11-20 12:33 | disposition home or self-care (01) ==
LOC: JER 09:57
DX: E87.5 Hyperkalemia (principal); N18.9 Chronic kidney disease, unspecified
CPT/HCPCS: 0241U-QW; 80053; 83735; 85025; 93005; 93010; 99284-25

== ENCOUNTER 2024-07-25 16:49 | Emergency (ER) | payer MEDICARE, OTHER ==
[2024-07-25 17:24] VITALS: TEMP 98.2; BMI 31.9
[2024-07-25 18:58] LABS: EPI CELLS 23 /uL (0-25.1); HYALINE CASTS 9 /uL (0-3.1); PH,URINE 6.5 (5.0-8.0); URINE APPEARANCE CLEAR; URINE BACTERIA 41 /uL (0-1359); URINE BILIRUBIN NEGATIVE (NEGATIVE); URINE COLOR DK YELLOW; URINE GLUCOSE (UA) NEGATIVE (NEGATIVE); URINE KETONE TRACE (NEGATIVE); URINE LEUK ESTERASE 3+ (NEGATIVE); URINE NITRITE NEGATIVE (NEGATIVE); URINE PROTEIN 1+ (NEGATIVE); URINE RBC 18 /uL (0-23.9); URINE WBC 77 /uL (0-25.8)
[2024-07-25 19:08] LABS: POTASSIUM 4.6 mmol/L (3.5-5.1)
[2024-07-25 19:10] LABS: CALCIUM 8.7 mg/dL (8.5-10.1)
[2024-07-25 19:11] LABS: ALBUMIN 2.3 g/dl (3.4-5.0); BLOOD UREA NITROGEN 18.3 mg/dL (7-18)
[2024-07-25 19:14] LABS: PHOSPHOROUS 2.5 mg/dL (2.5-4.9)
[2024-07-25 19:15] LABS: BILIRUBIN,TOTAL 0.4 mg/dL (0.2-1); TOT PROT 7.4 g/dl (6.4-8.2)
[2024-07-25 20:22] LABS: BASO % 1.2 % (0-2.0); EOS % 3.9 % (0-4.5); HEMATOCRIT 38.2 % (35.4-49); HEMOGLOBIN 12.6 GM/dL (11.7-16.9); LYMPH % 17.1 % (8-40); MEAN CELL VOLUME 81.9 fl (80-96); MONO % 9.3 % (3.8-10.2); NEUT % 68.5 % (42.8-82.8); PLATELET COUNT 211 10^3/uL (134-434); RBC 4.66 M/mm3 (4.00-5.60); RDW 16.4 % (11.9-15.9); WHITE BLOOD COUNT 8.1 K/mm3 (4.0-10.0)
[2024-07-25] MEDS: CEFTRIAXONE 1 GM in DEXTROSE 5%-WATER - 100 ML IVPB ONE (21:00)
[2024-07-25] MEDS ORDERED: CEPHALEXIN MONOHYDRATE 500 MG CAPSULE (UD) ONE (21:00)
[2024-07-25] MEDS: CEPHALEXIN MONOHYDRATE 500 MG CAPSULE (UD) PO ONE (21:05)
[2024-07-25 21:08] VITALS: BP 128/74; PULSE 105; RESP 16
== END 2024-07-25 21:08 | disposition home or self-care (01) ==
LOC: JER 16:49
DX: R00.0 Tachycardia, unspecified (principal); N39.0 Urinary tract infection, site not specified
CPT/HCPCS: 36415; 71045-TC-FY; 80053; 81003; 83735; 84100; 84443; 84484; 85025; 87086; 93005; 93010; 99285-25

== ENCOUNTER 2025-01-12 15:37 | Inpatient (IN) | payer MEDICARE, OTHER ==
[2025-01-12 16:51] LABS: ABSOLUTE IMMATURE GRANULOCYTES 0.07 x10^3/uL (0.0-0.031); BASOPHILS # 0.04 x10^3/uL (0.01-0.08); EOSINOPHIL % 2.5 % (0.8-7.0); EOSINOPHILS # 0.18 x10^3/uL (0.04-0.54); HEMATOCRIT 36.9 % (40.1-51.0); HEMOGLOBIN 11.3 g/dL (13.7-17.5); MCHC 30.6 g/dl (32.3-36.5); MEAN CELL VOLUME 84.6 fl (79.0-92.2); MEAN PLT VOLUME 11.3 fl (9.4-12.4); MONOCYTE # 0.56 x10^3/uL (0.30-0.82); MONOCYTE % 7.7 % (5.3-12.2); PLATELET COUNT 231 x10^3/uL (163-337); RDW 16.9 % (12.2-16.6)
[2025-01-12 17:06] LABS: INR 1.23 (0.83-1.09); PROTHROMBIN TIME (PATIENT) 13.4 SEC (9.7-13.0)
[2025-01-12 17:08] LABS: ACTIVATED PTT 27.3 SECONDS (25.2-36.5)
[2025-01-12 17:14] LABS: POTASSIUM 3.3 mmol/L (3.5-5.1)
[2025-01-12 17:18] LABS: BLOOD UREA NITROGEN 26.9 mg/dL (7-18); CALCIUM 8.7 mg/dL (8.5-10.1)
[2025-01-12 17:19] LABS: ALBUMIN 2.1 g/dl (3.4-5.0)
[2025-01-12 17:22] LABS: CREATININE 2.9 mg/dL (0.55-1.3); PHOSPHOROUS 3.2 mg/dL (2.5-4.9)
[2025-01-12 17:23] LABS: TOT PROT 6.8 g/dl (6.4-8.2)
[2025-01-12] MEDS ORDERED: CEFEPIME HCL/D5W 1 GM/50 ML BAG IVPB ONE (17:43)
[2025-01-12 17:50] LABS: VENOUS BASE EXCESS 2.8 mmol/L (-2-2); VENOUS O2 SATURATION 40.8 % (70-80); VENOUS PH 7.418 (7.310-7.410)
[2025-01-12] MEDS: CEFEPIME HCL 1 GM VIAL (RESTRICTED TO ID) IVPB ONE (17:52)
[2025-01-12 18:05] LABS: LACTIC ACID 2.2 mmol/L (0.4-2.0)
[2025-01-12] MEDS ORDERED: VANCOMYCIN 1 GM PREMIX (F) 1 GM/200 ML BAG ONE (18:13)
[2025-01-12] MEDS: VANCOMYCIN 1,000 MG in DEXTROSE 5%-WATER - 250 ML IVPB ONE (18:17)
[2025-01-12] MEDS: SODIUM CHLORIDE 0.9% 500 ML INFUS.BAG IV ONE (19:35)
[2025-01-12] MEDS ORDERED: ADENOSINE 6 MG/2 ML VIAL IVPUSH ONE ×2 (20:43→20:58)
[2025-01-12] MEDS: ADENOSINE 6 MG/2 ML VIAL IVPUSH ONE ×2 (21:00→21:04)
[2025-01-12] MEDS: SODIUM CHLORIDE 500 ML IV STA (21:16)
[2025-01-12] MEDS ORDERED: DIGOXIN 0.5 MG/2 ML AMPUL ONE (21:17)
[2025-01-12] MEDS: DIGOXIN 0.5 MG/2 ML AMPUL IVPUSH ONE (21:19)
[2025-01-12 22:13] LABS: EPI CELLS 8 /uL (0-25.1); HYALINE CASTS 2 /uL (0-3.1); URINE APPEARANCE CLEAR; URINE BACTERIA 1 /uL (0-1359); URINE BILIRUBIN NEGATIVE (NEGATIVE); URINE COLOR DK YELLOW; URINE GLUCOSE (UA) NEGATIVE (NEGATIVE); URINE KETONE NEGATIVE (NEGATIVE); URINE LEUK ESTERASE NEGATIVE (NEGATIVE); URINE NITRITE NEGATIVE (NEGATIVE); URINE PROTEIN 2+ (NEGATIVE); URINE RBC 80 /uL (0-23.9); URINE WBC 9 /uL (0-25.8)
[2025-01-12] MEDS ORDERED: MUPIROCIN 2% TOPICAL OINTMENT FOR DECOLONIZATION NS SCH ×2 (22:15→22:30)
[2025-01-12 22:33] LABS: LACTIC ACID 2.7 mmol/L (0.4-2.0)
[2025-01-12] MEDS: POTASSIUM CHLORIDE TABS 20 MEQ TABLET.ER (FP) PO ONE (23:44)
[2025-01-12] MEDS: ESMOLOL 2500 MG/250 ML 2,500,000 MCG/250 ML INFUS.BAG IVPB SCH (23:45)
[2025-01-13] MEDS: ESMOLOL 2500 MG/250 ML 2,500,000 MCG/250 ML INFUS.BAG IVPB SCH ×2 (00:01→00:16)
[2025-01-13] MEDS: LACTATED RINGERS SOLUTION 1000 ML INFUS.BAG IV ONE (00:08)
[2025-01-13] MEDS ORDERED: HEPARIN NA (PORCINE) 5,000 UNITS/ML 1ML VIAL IVPUSH PRN ×2 (01:07)
[2025-01-13] MEDS: MUPIROCIN 2% TOPICAL OINTMENT FOR DECOLONIZATION NS SCH (01:40)
[2025-01-13] MEDS: HEPARIN INFUSION - 25,000 UNITS/500 ML INFUS.BAG IVPB SCH (01:50)
[2025-01-13] MEDS ORDERED: DIGOXIN 0.5 MG/2 ML AMPUL IVPUSH ONE ×2 (03:00→09:00)
[2025-01-13] MEDS ORDERED: HEPARIN NA (PORCINE) 5,000 UNITS/ML 1ML VIAL SQ SCH ×2 (06:00)
[2025-01-13 06:43] LABS: ABSOLUTE IMMATURE GRANULOCYTES 0.13 x10^3/uL (0.0-0.031); BASOPHILS # 0.05 x10^3/uL (0.01-0.08); EOSINOPHILS # 0.09 x10^3/uL (0.04-0.54); HEMATOCRIT 32.3 % (40.1-51.0); HEMOGLOBIN 10.1 g/dL (13.7-17.5); MCHC 31.3 g/dl (32.3-36.5); MEAN CELL VOLUME 84.6 fl (79.0-92.2); MEAN PLT VOLUME 11.6 fl (9.4-12.4); MONOCYTE # 0.59 x10^3/uL (0.30-0.82); MONOCYTE % 6.9 % (5.3-12.2); PLATELET COUNT 224 x10^3/uL (163-337); RDW 16.5 % (12.2-16.6)
[2025-01-13 07:00] LABS: POTASSIUM 4.2 mmol/L (3.5-5.1)
[2025-01-13 07:03] LABS: BLOOD UREA NITROGEN 36.7 mg/dL (7-18); CALCIUM 8.3 mg/dL (8.5-10.1)
[2025-01-13 07:04] LABS: ALBUMIN 1.8 g/dl (3.4-5.0)
[2025-01-13 07:05] LABS: MAGNESIUM 1.8 mg/dL (1.8-2.4)
[2025-01-13 07:07] LABS: CREATININE 3.2 mg/dL (0.55-1.3); PHOSPHOROUS 4.5 mg/dL (2.5-4.9)
[2025-01-13 07:08] LABS: TOT PROT 5.8 g/dl (6.4-8.2)
[2025-01-13] MEDS: CEFTRIAXONE 1 G/50 ML PREMIX 50 ML IVPB SCH (09:01)
[2025-01-13] MEDS: PANTOPRAZOLE SODIUM 40 MG VIAL IVPUSH SCH (09:02)
[2025-01-13] MEDS: AMIODARONE IN DEXTROSE,ISO-OSM 150 MG/100 ML BAG IVPB ONE (09:35)
[2025-01-13] MEDS: AMIODARONE IN DEXTROSE,ISO-OSM 360 MG/200 ML BAG IV SCH ×2 (09:50→15:50)
[2025-01-13] MEDS: APIXABAN 5 MG TABLET PO SCH (10:30)
[2025-01-13] MEDS: CHLORHEXIDINE GLUCONATE 4% CLEANSER FOR DECOLONIZATION TP SCH (21:07)
[2025-01-13] MEDS ORDERED: CHLORHEXIDINE GLUCONATE 4% CLEANSER FOR DECOLONIZATION TP SCH ×2 (22:00)
[2025-01-13] MEDS ORDERED: POTASSIUM CHLORIDE TABS 20 MEQ TABLET.ER (FP) PO ONE (22:16)
[2025-01-14 06:55] LABS: POTASSIUM 4.5 mmol/L (3.5-5.1)
[2025-01-14 07:00] LABS: BLOOD UREA NITROGEN 44.6 mg/dL (7-18); CALCIUM 8.6 mg/dL (8.5-10.1)
[2025-01-14 07:01] LABS: ALBUMIN 1.7 g/dl (3.4-5.0); MAGNESIUM 2.1 mg/dL (1.8-2.4)
[2025-01-14 07:03] LABS: CREATININE 3.9 mg/dL (0.55-1.3); PHOSPHOROUS 4.8 mg/dL (2.5-4.9)
[2025-01-14 07:04] LABS: BILIRUBIN,TOTAL 0.4 mg/dL (0.2-1); TOT PROT 5.7 g/dl (6.4-8.2)
[2025-01-14 09:35] LABS: HEMATOCRIT 32.6 % (40.1-51.0); HEMOGLOBIN 10.3 g/dL (13.7-17.5); MCHC 31.6 g/dl (32.3-36.5); MEAN CELL VOLUME 83.4 fl (79.0-92.2); MEAN PLT VOLUME 11.3 fl (9.4-12.4); PLATELET COUNT 255 x10^3/uL (163-337); RDW 16.8 % (12.2-16.6)
[2025-01-14] MEDS ORDERED: PNEUMOC 20-VAL CONJ-DIP CRM/PF 0.5 ML SYRINGE IM ONE (10:00)
[2025-01-14 10:11] LABS: MAGNESIUM 2.2 mg/dL (1.8-2.4)
[2025-01-14 10:15] LABS: PHOSPHOROUS 4.8 mg/dL (2.5-4.9)
[2025-01-14] MEDS: APIXABAN 2.5 MG TABLET PO SCH (11:28)
[2025-01-14] MEDS: METOPROLOL TARTRATE 25 MG TABLET (FP) PO SCH (11:29)
[2025-01-14 11:31] LABS: HCV DIAGNOSTIC IN-HOUSE W/RFLX REACTIVE (NONREACTIVE)
[2025-01-14 12:40] VITALS: BMI 31.6
[2025-01-14] MEDS ORDERED: METOPROLOL TARTRATE 5 MG/5 ML VIAL IVPUSH PRN (12:41)
[2025-01-14] MEDS: AMIODARONE HCL 200 MG TABLET PO ONE (15:10)
[2025-01-14] MEDS ORDERED: SODIUM CHLORIDE 250 ML IV PRN (19:20)
[2025-01-14] MEDS: AMIODARONE HCL 200 MG TABLET PO SCH (22:50)
[2025-01-14] MEDS: hydrOXYzine HCL 10 MG/5 ML UNIT DOSE CUPS PO PRN (23:38)
[2025-01-15 07:09] LABS: HEMATOCRIT 35.3 % (40.1-51.0); HEMOGLOBIN 10.9 g/dL (13.7-17.5); MCHC 30.9 g/dl (32.3-36.5); MEAN CELL VOLUME 84.2 fl (79.0-92.2); MEAN PLT VOLUME 11.5 fl (9.4-12.4); PLATELET COUNT 274 x10^3/uL (163-337); RDW 16.8 % (12.2-16.6)
[2025-01-15 07:26] LABS: POTASSIUM 3.9 mmol/L (3.5-5.1)
[2025-01-15 07:30] LABS: CALCIUM 8.8 mg/dL (8.5-10.1)
[2025-01-15 07:31] LABS: BLOOD UREA NITROGEN 30.4 mg/dL (7-18); MAGNESIUM 1.9 mg/dL (1.8-2.4)
[2025-01-15 07:34] LABS: CREATININE 3.2 mg/dL (0.55-1.3); PHOSPHOROUS 4.6 mg/dL (2.5-4.9)
[2025-01-15] MEDS ORDERED: SODIUM CHLORIDE 250 ML IV PRN ×2 (12:49→15:00)
[2025-01-15] MEDS ORDERED: hydrOXYzine HCL 10 MG/5 ML UNIT DOSE CUPS PO PRN (15:00)
[2025-01-15] MEDS: METOPROLOL TARTRATE 25 MG TABLET (FP) PO SCH (21:07)
[2025-01-15] MEDS: AMIODARONE HCL 200 MG TABLET PO SCH (21:07)
[2025-01-15] MEDS: APIXABAN 2.5 MG TABLET PO SCH (21:07)
[2025-01-15] MEDS ORDERED: CHLORHEXIDINE GLUCONATE 4% CLEANSER FOR DECOLONIZATION TP SCH (22:00)
[2025-01-16] MEDS ORDERED: AMOX TR/POT CLAV 875MG/125MG TABLETS (FP) PO SCH (08:00)
[2025-01-16] MEDS: AMOX TR/POT CLAV 500MG/125MG TABLETS (FP) PO SCH (08:32)
[2025-01-16 09:04] LABS: ABSOLUTE IMMATURE GRANULOCYTES 0.09 x10^3/uL (0.0-0.031); BASOPHILS # 0.05 x10^3/uL (0.01-0.08); EOSINOPHIL % 6.8 % (0.8-7.0); EOSINOPHILS # 0.42 x10^3/uL (0.04-0.54); HEMATOCRIT 34.5 % (40.1-51.0); HEMOGLOBIN 10.6 g/dL (13.7-17.5); MCHC 30.7 g/dl (32.3-36.5); MEAN CELL VOLUME 83.9 fl (79.0-92.2); MEAN PLT VOLUME 11.5 fl (9.4-12.4); MONOCYTE # 0.68 x10^3/uL (0.30-0.82); PLATELET COUNT 311 x10^3/uL (163-337); RDW 16.8 % (12.2-16.6)
[2025-01-16 09:25] LABS: POTASSIUM 3.8 mmol/L (3.5-5.1)
[2025-01-16 09:29] LABS: ALBUMIN 2.1 g/dl (3.4-5.0); BLOOD UREA NITROGEN 42.9 mg/dL (7-18); CALCIUM 8.9 mg/dL (8.5-10.1); MAGNESIUM 1.8 mg/dL (1.8-2.4)
[2025-01-16 09:32] LABS: CREATININE 3.9 mg/dL (0.55-1.3)
[2025-01-16 09:33] LABS: BILIRUBIN,TOTAL 0.5 mg/dL (0.2-1)
[2025-01-16 09:34] LABS: TOT PROT 6.6 g/dl (6.4-8.2)
[2025-01-16] MEDS ORDERED: CEFTRIAXONE 1 G/50 ML PREMIX 50 ML IVPB SCH (10:00)
[2025-01-16] MEDS: PANTOPRAZOLE 40 MG TABLET PO SCH (13:04)
[2025-01-16 14:17] VITALS: BP 109/55; PULSE 94; RESP 18; TEMP 98.4
== END 2025-01-16 14:28 | disposition home or self-care (01) | DRG 871 ==
LOC: JER 15:37 → JERBED 18:48 → JICU 23:37 → J2W 01-15 07:32 → J5S 01-15 14:39
PROVIDERS: ADMIT Internal Medicine; ATTEND Internal Medicine
PROC: 5A1D70Z Performance of Urinary Filtration, Intermittent, Less than 6 Hours Per Day (ICD-10-PCS; principal; 2025-01-14)
DX: A41.9 Sepsis, unspecified organism (principal); J18.9 Pneumonia, unspecified organism; N18.6 End stage renal disease; I13.2 Hypertensive heart and chronic kidney disease with heart failure and with stage 5 chronic kidney disease, or end stage renal disease; I50.22 Chronic systolic (congestive) heart failure; I42.9 Cardiomyopathy, unspecified; C22.9 Malignant neoplasm of liver, not specified as primary or secondary; J98.11 Atelectasis; Z99.2 Dependence on renal dialysis; N40.0 Benign prostatic hyperplasia without lower urinary tract symptoms; E78.5 Hyperlipidemia, unspecified; E87.6 Hypokalemia; I48.0 Paroxysmal atrial fibrillation; I36.1 Nonrheumatic tricuspid (valve) insufficiency; J45.909 Unspecified asthma, uncomplicated
CPT/HCPCS: 0241U-QW; 36415; 71045-TC-FY; 71250-TC; 80048; 80053; 81003; 82140; 82803; 83605; 83735; 84100; 84484; 85025; 85027; 85610; 85730; 86704; 86803; 86850; 86900; 86901; 87040; 87081; 87086; 87340; 87517; 87522; 87899; 93005; 93010; 93306-TC; 97116-GP; 97162-GP; 99285-25; G0480; J0282; J1644

== ENCOUNTER 2025-08-13 12:38 | Day surgery (SDC) | payer MEDICARE, OTHER ==
[2025-08-13] MEDS ORDERED: HEPARIN NA (PORCINE) 5,000 UNITS/ML 1ML VIAL ONE (14:22)
[2025-08-13] MEDS ORDERED: MIDAZOLAM HCL 2 MG/2 ML SINGLE DOSE VIAL ONE (14:34)
[2025-08-13] MEDS: MIDAZOLAM HCL 2 MG/2 ML SINGLE DOSE VIAL IVPUSH ONE (14:42)
[2025-08-13 15:07] VITALS: TEMP 98
[2025-08-13 15:19] VITALS: BP 112/54; PULSE 77; RESP 18
== END 2025-08-13 15:32 | disposition home or self-care (01) ==
LOC: JRADIR 12:38
PROVIDERS: ATTEND Surgery
PROC: 05773ZZ Dilation of Right Axillary Vein, Percutaneous Approach (ICD-10-PCS; principal; 2025-08-13)
DX: T82.858A Stenosis of other vascular prosthetic devices, implants and grafts, initial encounter (principal); I12.0 Hypertensive chronic kidney disease with stage 5 chronic kidney disease or end stage renal disease; N18.6 End stage renal disease; Z99.2 Dependence on renal dialysis
CPT/HCPCS: 37248; 75820-TC-FY; C1725; C1769; C1894